=== PATIENT | male | born 1955 | race Caucasian/White ===

== ENCOUNTER → 2016-12-04 | Day surgery (SDC) | payer MEDICARE, OTHER ==
[~2016-12-04] VITALS: Ht 180.3 cm; Wt 78.6 kg
[~2016-12-04] MED LIST: **HUMALOG*100 UNIT/M SUB-Q; B COMPLEX1 EACH PO; DRISDOL 5050000 UNIT PO; MIRALAX17 GM PO; NITROSTAT0.4 MG SL; NORCO 5-325 TA1 EACH PO; PHOSLO667 MG PO; VITAMIN B-625 MG PO; [UNRECOGNIZED DRUG - OTHER] TOP
--- NOTE | ~2016-12-04 | OR ---
PATIENT'S NAME: REX MANNING [facility] AGE: 61 Y [address] ROOM: [place] [address] LOCATION: [facility] [place] ADMIT DATE: 12/04/2016 OR/Procedure Report DISCHARGE DATE: FAMILY PHYSICIAN: Vicky Danielson MD ATTENDING PHYSICIAN: BASSEM MOSLEY SURGEON: Bassem Mosley MD LANGUAGES AND LITERATURE INSTRUCTOR: DATE OF PROCEDURE: 12/04/2016 PREOPERATIVE DIAGNOSIS: Poorly functioning arteriovenous fistula. POSTOPERATIVE DIAGNOSIS: Poorly functioning arteriovenous fistula. PROCEDURES PERFORMED: 1. Fistulogram. 2. Fistuloplasty. BRASS MOLDER: Judi Tinoco MD. ANESTHESIA: MAC, local. ESTIMATED BLOOD LOSS: 5 mL. OPERATIVE FINDINGS: Small radial artery and 2 outflow vein tracts stenoses. DESCRIPTION OF PROCEDURE: The patient was brought to the Subwarehouse Supervisor, placed supine on the laborer steel handling table, and prepped and draped in a sterile manner. A preoperative time-out was performed. The patient received preoperative antibiotics. The patient had poor flows at dialysis. We gained access using ultrasound guidance, infiltrated the skin with 1% lidocaine, and then accessed the fistula in an antegrade fashion pointing towards the arterial anastomosis. We used the micropuncture kit, which was then exchanged for a 4-Hungarian short sheath using Seldinger technique. We then gave 5000 units of heparin. We then performed a fistulogram, which showed that the radial artery was an extremely small artery, likely not providing adequate flow, and then proximal to the anastomosis, there was a high-grade near occlusive lesion. We crossed this lesion with a three-way wire, and then balloon angioplastied with a 4 x 4 and 5 x 40 Elliot balloon, relieving the stenosis. This will likely temporize the situation. However, the patient will likely need a revision of his fistula to a more proximal larger artery for better flow. Sheath was removed. A single 4-0 nylon stitch was placed. Protamine was used to reverse the heparin. POSTOPERATIVE DISPOSITION: The patient tolerated the procedure well, was transferred to the Recovery Room, and then home later that day. PATIENT'S NAME: REX MANNING [facility] AGE: 61 Y [address] ROOM: [place] [address] LOCATION: [facility] [place] ADMIT DATE: 12/04/2016 OR/Procedure Report DISCHARGE DATE: FAMILY PHYSICIAN: Vicky Danielson MD ATTENDING PHYSICIAN: BASSEM MOSLEY BASSEM MOSLEY MD FKM/modl /[id number] d: 12/04/162124 t: 12/07/16 1029, OPERATIVE SUMMARY
[2016-12-04 06:51] LABS: BASOPHIL % 0.4 %; EOSINOPHIL % 0.2 %; HEMATOCRIT 32.9 % (37.0-53.0); HEMOGLOBIN 10.9 g/dL (12.0-17.0); IMMATURE GRANULOCYTE % 0.4 %; LYMPHOCYTE # 0.7 K/uL (0.8-4.0); LYMPHOCYTE % 8.3 %; MCH 34.3 pg (27.0-34.0); MCHC 33.1 gm/dL (32.0-36.5); MCV 103.5 fl (83.0-98.0); MONOCYTE # 0.6 K/uL (0.0-1.0); MPV 10.7 fl (9.4-12.4); NEUTROPHIL # (ANC) 7.1 K/uL (1.4-9.0); NEUTROPHIL % 83.7 %; NRBC % 0 /100WBC (0-0.00); PLATELET COUNT 224 K/uL (150-450); RBC 3.18 M/uL (4.00-6.00); RDW-CV 14.3 % (11.9-14.6); WBC 8.4 K/uL (4.0-11.0)
[2016-12-04 07:05] LABS: ALBUMIN 3.4 gm/dL (3.5-5.0); ANION GAP 17.4 (10.0-19.0); POTASSIUM 4.4 mMol/L (3.7-5.1); TOTAL BILIRUBIN 1.1 mg/dL (0.0-1.5)
[2016-12-04 07:07] LABS: CREATININE 10.9 mg/dL (0.6-1.3)
== END | disposition disaster alternative care site (69) ==
LOC: GPOC 12-03 10:00 → GSDC 05:40 → EDSTATUS 06:00 → GPOC 06:00
PROVIDERS: Surgery Vascular Surgery
PROC: B50WYZZ Plain Radiography of Dialysis Shunt/Fistula using Other Contrast (ICD-10-PCS; principal; 2016-12-04)
DX: T82.858A Stenosis of other vascular prosthetic devices, implants and grafts, initial encounter (principal); N18.6 End stage renal disease; E11.22 Type 2 diabetes mellitus with diabetic chronic kidney disease; I13.2 Hypertensive heart and chronic kidney disease with heart failure and with stage 5 chronic kidney disease, or end stage renal disease; I50.9 Heart failure, unspecified; Z99.2 Dependence on renal dialysis; Z90.49 Acquired absence of other specified parts of digestive tract; Z98.41 Cataract extraction status, right eye; Z98.42 Cataract extraction status, left eye; Z98.890 Other specified postprocedural states; Z79.4 Long term (current) use of insulin; Z79.899 Other long term (current) drug therapy
CPT/HCPCS: C1725; J0690; J1644; J2001; J2250; J2720; J3010; J7030

== ENCOUNTER → 2016-12-10 | Day surgery (SDC) | payer MEDICARE, OTHER ==
[~2016-12-10] VITALS: Ht 180.3 cm; Wt 79.4 kg
--- NOTE | ~2016-12-10 | OR ---
PATIENT'S NAME: REX MANNING [facility] AGE: 61 Y [address] ROOM: [place] [address] LOCATION: [facility] [place] ADMIT DATE: 12/10/2016 OR/Procedure Report DISCHARGE DATE: FAMILY PHYSICIAN: Vicky Danielson MD ATTENDING PHYSICIAN: BASSEM MOSLEY SURGEON: Bassem Mosley MD LOAN SPECIALIST: DATE OF PROCEDURE: 12/10/2016 PREOPERATIVE DIAGNOSIS: End-stage renal disease. POSTOPERATIVE DIAGNOSIS: End-stage renal disease. PROCEDURE: 1. Ligation of left arm radiocephalic fistula. 2. Creation of new left arm brachiocephalic fistula. COKE BURNER: OR staff. ANESTHESIA: General. ESTIMATED FLUID LOSS: 10 mL. OPERATIVE FINDINGS: Good thrill and bruit in the new brachiocephalic fistula. No further flow in the radiocephalic fistula. DESCRIPTION OF PROCEDURE: The patient was brought to the operating room, placed supine on the operating table, placed under general anesthesia, and prepped and draped in a sterile manner. Preoperative time-out was performed. The patient received preoperative antibiotics. We made an incision along the area of the anastomosis of the previous radiocephalic fistula in a transverse fashion. We dissected the outflow vein tract in a 360-degree fashion. We then ligated it with a single 0 Prolene tie until there was no further flow. We repaired that incision with a running 4-0 Monocryl. We then made a stab incision 2 cm proximal to the antecubital fossa, dissected down the fascia, and incised the fascia in a longitudinal manner. We dissected out the brachial artery. We then dissected out the cephalic vein which had already been arterialized from the previous radiocephalic fistula. We ligated and transected it distally. We gave 5000 units of heparin. We clamped proximally and distally on the artery. We made an arteriotomy to a size of 4 mm after administering 5000 units of heparin. We then did a standard 6-0 Prolene anastomosis from the vein to the artery. We removed the clamps. There was excellent flow, which was confirmed with the use of Doppler and a palpable thrill. There was a positive radial and ulnar signal at the end of the case. Heparin was reversed with protamine. The patient did have a profound drop in PATIENT'S NAME: REX MANNING [facility] AGE: 61 Y [address] ROOM: [place] [address] LOCATION: [facility] [place] ADMIT DATE: 12/10/2016 OR/Procedure Report DISCHARGE DATE: FAMILY PHYSICIAN: Vicky Danielson MD ATTENDING PHYSICIAN: BASSEM MOSLEY his blood pressure with administration of protamine which required epinephrine to reverse. 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 We then reapproximated the layers with 2-0 and 3-0 Vicryl, skin was closed with running 4-0 Monocryl. The patient tolerated the procedure well and transferred to the recovery room and home later that day. MD DAGO LIMAM/modl /[id number] d: 12/10/16 215 t: 12/12/16 0959, OPERATIVE SUMMARY
[2016-12-10 10:59] LABS: BASOPHIL # 0.1 K/uL (0.0-0.2); BASOPHIL % 0.9 %; EOSINOPHIL # 0.2 K/uL (0.0-0.5); EOSINOPHIL % 2.9 %; HEMATOCRIT 32.4 % (37.0-53.0); HEMOGLOBIN 10.3 g/dL (12.0-17.0); IMMATURE GRANULOCYTE % 0.3 %; LYMPHOCYTE # 0.9 K/uL (0.8-4.0); LYMPHOCYTE % 15.1 %; MCH 33.4 pg (27.0-34.0); MCHC 31.8 gm/dL (32.0-36.5); MCV 105.2 fl (83.0-98.0); MONOCYTE # 0.5 K/uL (0.0-1.0); MONOCYTE % 8.1 %; MPV 10.6 fl (9.4-12.4); NEUTROPHIL # (ANC) 4.2 K/uL (1.4-9.0); NEUTROPHIL % 72.7 %; NRBC % 0 /100WBC (0-0.00); PLATELET COUNT 201 K/uL (150-450); RBC 3.08 M/uL (4.00-6.00); WBC 5.8 K/uL (4.0-11.0)
[2016-12-10 11:16] LABS: ALBUMIN 3.1 gm/dL (3.5-5.0); ANION GAP 10.7 (10.0-19.0); CALCIUM 8.1 mg/dL (8.5-10.5); POTASSIUM 3.7 mMol/L (3.7-5.1); TOTAL PROTEIN 7.5 g/dL (6.0-8.4)
[2016-12-10 11:18] LABS: TOTAL BILIRUBIN 0.7 mg/dL (0.0-1.5)
--- NOTE | 2016-12-10 13:56 | NUR ---
RX GIVEN FOR PAIN. REPORT TO Cecilia DIXON RN
== END | disposition disaster alternative care site (69) ==
LOC: GPOC 12-07 15:00 → GSDC 09:46
PROVIDERS: Surgery Vascular Surgery
PROC: 05LF0ZZ Occlusion of Left Cephalic Vein, Open Approach (ICD-10-PCS; principal; 2016-12-10)
PROC: 031809D Bypass Left Brachial Artery to Upper Arm Vein with Autologous Venous Tissue, Open Approach (ICD-10-PCS; 2016-12-10)
DX: E11.22 Type 2 diabetes mellitus with diabetic chronic kidney disease (principal); I13.2 Hypertensive heart and chronic kidney disease with heart failure and with stage 5 chronic kidney disease, or end stage renal disease; I50.9 Heart failure, unspecified; N18.6 End stage renal disease; Z98.41 Cataract extraction status, right eye; Z98.42 Cataract extraction status, left eye; Z90.49 Acquired absence of other specified parts of digestive tract; Z98.890 Other specified postprocedural states; Z79.4 Long term (current) use of insulin; Z79.899 Other long term (current) drug therapy
CPT/HCPCS: J0690; J1644; J2001; J2250; J2405; J2550; J2720; J3010; J7030